=== PATIENT | female | born 1995 | race Caucasian/White ===

== ENCOUNTER 2022-11-05 10:23 | Emergency (ER) | payer OTHER ==
[~2022-11-05] VITALS: Ht 175.3 cm; Wt 77.1 kg
--- NOTE | 2022-11-05 11:08 | NUR ---
pt to radiology for head ct scan.
[2022-11-05 14:25] VITALS: BP 128/77
--- NOTE | 2022-11-05 14:26 | NUR ---
Patient discharged to home in stable condition. Written and verbal after care instructions given. Patient verbalizes understanding of instruction.
[2022-11-05] MEDS ORDERED: DILTIAZEM HCL IV 125 MG in IV NS 0.9% 100 ML IV PRN (14:30)
== END 2022-11-05 14:26 | disposition home or self-care (01) ==
LOC: ER 10:23
DX: S09.90XA Unspecified injury of head, initial encounter (principal); W18.30XA Fall on same level, unspecified, initial encounter; Y93.89 Activity, other specified; Y92.89 Other specified places as the place of occurrence of the external cause; Y99.8 Other external cause status
CPT/HCPCS: 70450-TC; 84703-TC